=== PATIENT | female | born 1965 | race Hispanic/Latino ===

== ENCOUNTER 2016-09-15 19:18 | Observation (INO) | payer BC ==
--- NOTE | 2016-09-15 19:26 | ED PDOC ---
Arrival/HPI - General Time Seen by Provider: 09/15/16 19:22 Historian: Patient - History of Present Illness Narrative History of Present Illness (Text): 09/15/16 19:23 51 y/o female, no significant pmh, nkda, biba public intoxication and bizzare behavior x 2 hours. Pt. was noticed by the lead fire protection engineer that she was crying and yelling on the street, appear intoxicated with alcohol on the breath, ambulance was call and bring to the ER. Pt. is in the ER, yelling, crying, screaming, refused to be reasoned. pt. has no homicidal or suicidal ideation, no auditory or visual hallucination. Past Medical History - Provider Review Nursing Documentation Reviewed: Yes Family/Social History - Physician Review Nursing Documentation Reviewed: Yes Family/Social History: Unknown Family HX Allergies/Home Meds Allergies/Adverse Reactions: Allergies No Known Allergies Allergy (Verified 09/15/16 19:28) Home Medications: Home Meds Medication Instructions Recorded Confirmed DULoxetine [Cymbalta] 30 mg PO DAILY 09/15/16 09/15/16 Gabapentin [Gabapentin] 300 mg PO BID 09/15/16 09/15/16 Review of Systems - Review of Systems Systems not reviewed;Unavailable: Intoxicated Physical Exam Vital Signs Temp Pulse Resp BP Pulse Ox 09/16/16 03:02 87 17 130/84 97 09/16/16 00:45 87 17 124/69 96 09/15/16 21:33 98.0 F 88 18 132/88 100 09/15/16 19:27 97.9 F 103 H 16 141/104 H 100 - Systems Exam Head: Present: Atraumatic, Normocephalic Pupils: Present: PERRL Extroacular Muscles: Present: EOMI Conjunctiva: Present: Normal Mouth: Present: Moist Mucous Membranes Neck: Present: Normal Range of Motion Respiratory/Chest: Present: Clear to Auscultation, Good Air Exchange. No: Respiratory Distress, Accessory Muscle Use Cardiovascular: Present: Regular Rate and Rhythm, Normal S1, S2. No: Murmurs Abdomen: Present: Normal Bowel Sounds. No: Tenderness, Distention, Peritoneal Signs, Rebound, Guarding Back: Present: Normal Inspection Upper Extremity: Present: Normal Inspection. No: Cyanosis, Edema Lower Extremity: Present: Normal Inspection. No: Edema Neurological: Present: GCS=15, Speech Normal, Motor Func Grossly Intact, Memory Normal Skin: Present: Warm, Dry, Normal Color. No: Rashes Psychiatric: Present: Alert, Normal Insight, Normal Concentration Medical Decision Making ED Course and Treatment: 09/15/16 19:25 -labs -CT head 09/15/16 21:18 -Labs are non-significant except etoh 424, K+ 3.5, potassium chloride 20 meq po ordered. -Pending CT head. - Lab Interpretations Lab Results: 09/15/16 19:50 09/15/16 19:50 Lab Results 09/15/16 19:50: Beta HCG, Quant < 2.39, Alcohol, Quantitative 424 H* 09/15/16 19:50: Sodium 149 H, Potassium 3.5 L, Chloride 108 H, Carbon Dioxide 27 , Anion Gap 18, BUN 21, Creatinine 0.6, Est GFR ( Amer) > 60, Est GFR ( Non-Af Amer) > 60, Random Glucose 89, Calcium 8.4, Magnesium 1.7, Total Bilirubin 0.2, AST 116 H, ALT 81 H, Alkaline Phosphatase 72, Total Protein 7.1, Albumin 4.1, Globulin 3.0, Albumin/Globulin Ratio 1.4 09/15/16 19:50: WBC 5.3, RBC 3.64, Hgb 12.2, Hct 35.7 L, MCV 98.1, MCH 33.5, MCHC 34.2, RDW 14.0, Plt Count 189, MPV 9.6, Gran % 50.5, Lymph % (Auto) 37.1 H , Mcminn % (Auto) 7.6 H, Eos % (Auto) 3.8, Baso % (Auto) 1.0, Gran # 2.65, Lymph # 2.0, Mcminn # 0.4, Eos # 0.2, Baso # 0.05 I have reviewed the lab results: Yes Interpretation: Abnormal lab values (etoh 424, K+ 3.5) - RAD Interpretation Radiology Orders: 09/15/16 19:43 HEAD W/O CONTRAST [CT] Stat No acute intracranial findings but there is sinus mucosal thickening. Groundman: Radiologist - Medication Orders Current Medication Orders: Discontinued Medications Potassium Chloride (K-Dur 20 Meq Er Tab) 20 meq PO STAT STA Stop: 09/15/16 21:18 ED OBSERVATION Date of observation admission: 09/15/16 Time of observation admission: 20:00 - Observation admission statement Patient is being placed in observation because:: alcohol intoxication - Goals of Observation Goals of observation are:: sober - Progress Note Progress Note: 09/15/16 22:00 -Pt. is sleeping well, no medication or psychological complaints. 09/16/16 00:00 -Pt. is sleeping well 09/16/16 02:00 -CT Head show no acute intracranial findings but there is sign for sinusitis. -I will print out augmentin for her and put it to her folder 09/16/16 02:59 -Case sign out to the ER attending Dr. Mendez to follow up and dispo her. - PA / [employer]ER / Resident Statement MD/DO has reviewed & agrees with the documentation as recorded. Disposition/Present on Arrival - Present on Arrival Any Indicators Present on Arrival: No History of DVT/PE: No History of Uncontrolled Diabetes: No Urinary Catheter: No History of Decub. Ulcer: No - Disposition Have Diagnosis and Disposition been Completed?: Yes Diagnosis: Alcohol intoxication, Hypokalemia, Sinusitis Disposition: HOME/ ROUTINE Disposition Time: 21:18 Patient Plan: Other Condition: STABLE
[2016-09-15 19:29] VITALS: BMI 22.8
[2016-09-15 20:04] LABS: BASO # 0.05 K/mm3 (0.0-2.0); EOS # 0.2 (0.0-0.7); EOS % 3.8 % (1.5-5.0); GRAN # 2.65 (1.4-6.5); GRAN % 50.5 % (50.0-68.0); HEMOGLOBIN 12.2 gm/dL (12.0-16.0); LYMPH % 37.1 % (22.0-35.0); MEAN CELL VOLUME 98.1 fL (80.0-105.0); MEAN CORPUSCULAR HEMOGLOBIN 33.5 pg (25.0-35.0); MEAN CORPUSCULAR HGB CONC 34.2 g/dl (31.0-37.0); MEAN PLATELET VOLUME 9.6 fl (7.0-11.0); MONO # 0.4 (0.1-0.6); MONO % 7.6 % (1.0-6.0); PLATELET COUNT 189 10^3/uL (120.0-450.0); RBC 3.64 10^6/uL (3.5-6.1); WHITE BLOOD COUNT 5.3 10^3/ul (4.5-11.0)
[2016-09-15 20:32] LABS: ALB/GLOB RATIO 1.4 (1.1-1.8); ALBUMIN 4.1 g/dL (3.0-4.8); ALT/SGPT 81 U/L (7-56); AST/SGOT 116 U/L (15-39); BLOOD UREA NITROGEN 21 mg/dL (7-21); CALCIUM 8.4 mg/dL (8.4-10.5); GFR AFRICAN-AMERICAN > 60; GFR NON-AFRICAN AMERICAN > 60; MAGNESIUM 1.7 mg/dL (1.7-2.2)
[2016-09-15] MEDS ORDERED: Potassium Chloride 20 mEq ER Tab PO STA (21:17)
[2016-09-15 21:33] VITALS: TEMP 98
--- NOTE | 2016-09-15 21:35 | CT ---
EXAM: CT Head Without Intravenous Contrast CLINICAL HISTORY: 51 years old, female; Injury or trauma; Fall; Initial encounter; Abrasion; Head, generalized; Additional info: ETOH, found on the street, R/O bleed TECHNIQUE: Axial computed tomography images of the head/brain without intravenous contrast. This CT exam was performed using one or more of the following dose reduction techniques: automated exposure control, adjustment of the mA and/or kV according to patient size, and/or use of iterative reconstruction technique. COMPARISON: No relevant prior studies available. FINDINGS: Brain: Mild atrophy. No intracranial hemorrhage. No mass. No edema. Ventricles: No hydrocephalus. Bones/joints: No acute fracture. Soft tissues: Unremarkable. Sinuses: Scattered minimal to mild mucosal thickening. Mastoid air cells: No mastoid effusion. Orbits: Unremarkable as visualized. IMPRESSION: 1. No intracranial hemorrhage. 2. Incidental/non-acute findings are described above.
[2016-09-16 02:46] VITALS: PULSE 87; RESP 17
[2016-09-16 05:03] VITALS: BP 130/84; O2SAT 97
== END 2016-09-16 06:10 | disposition home or self-care (01) ==
LOC: ED 19:18 → EROBSV 21:22
PROVIDERS: ADMIT Emergency Medicine; ATTEND Emergency Medicine
DX: F10.129 Alcohol abuse with intoxication, unspecified (principal); Y90.8 Blood alcohol level of 240 mg/100 ml or more; E87.6 Hypokalemia; J32.9 Chronic sinusitis, unspecified
CPT/HCPCS: 70450; 80053; 83735; 84702; 85025; 99284; G0378; G0480